=== PATIENT | female | born 2000 | race Hispanic/Latino ===

== ENCOUNTER 2023-05-24 08:59 | Day surgery (SDC) | payer OTHER ==
[2023-05-16 16:14] VITALS: BP 106/70
[~2023-05-24] VITALS: Ht 154.9 cm; Wt 67.0 kg
--- NOTE | ~2023-05-24 | OR ---
[address] [address] [place] DATE OF OPERATION: 05/24/2023 SURGEON: Anne Marie Parham DO PREOPERATIVE DIAGNOSES: 1. Chronic pelvic pain. 2. Dysmenorrhea. 3. Dyspareunia. 4. Dysuria. POSTOPERATIVE DIAGNOSES: 1. Chronic pelvic pain. 2. Dysmenorrhea. 3. Dyspareunia. 4. Dysuria. 5. Arcuate uterus. PROCEDURES PERFORMED: 1. Hysteroscopy, dilation and curettage. 2. Cystoscopy. 3. Diagnostic laparoscopy. ANESTHESIA: General. COMPLICATIONS: None. ESTIMATED BLOOD LOSS: 10 mL. SPECIMEN: Endometrial curettings. FINDINGS: Normal external genitalia with normal clitoris, urethral meatus, bilateral [place]'s Bartholin's glands. Normal vagina and cervix with excellent apical support. On hysteroscopy, normal cervical os and endometrium without fibroids or polyps. An arcuate configuration to the endometrial cavity. On cystoscopy, normal bladder without Hunner's ulcerations, trabeculations, or other abnormalities. Excellent compliance of the PATIENT NAME: YESENIA JOSEPH OPERATIVE REPORT DATE OF : [birth year] REPORT #: [id number] PHYSICIAN: ANNE MARIE PARHAM) PCP: MISTY GARRIDO MD REPORT IS CONFIDENTIAL AND NOT TO BE RELEASED WITHOUT AUTHORIZATION [address] [address] Draft bladder and no petechial hemorrhage on second look. On laparoscopy, normal right upper quadrant, appendix, uterus, tubes, and ovaries. Normal peritoneum without evidence of endometriosis. No visual explanation for the patient's symptoms. INDICATIONS: Ms. Abdoul Knight is a very pleasant 22-year-old G0 female with a history of dysmenorrhea, dyspareunia, dysuria, who presents for diagnostic laparoscopy, hysteroscopy, D and C, and cystoscopy. Risks, benefits, and alternatives were discussed in detail with the patient. The patient understands and wishes to proceed with procedure. TECHNIQUE: The patient was taken to the operating room where a time-out was performed to confirm correct patient and correct procedure. General anesthesia was adequately established. The patient was prepped and draped in dorsal lithotomy position with her feet in Yellofin stirrups. ICPs were on running and no preoperative antibiotics or heparin were indicated. A Ramos was placed in the bladder and a weighted speculum was placed in vagina. The anterior lip of the cervix was grasped with an Allis clamp. The cervix was gently dilated with Hegar dilators to a #7. The cystoscope was placed in the cervical os and advanced under direct visualization into the uterus. Normal-appearing endometrium without fibroid or polyp noted. There was an arcuate configuration to the fundal portion of the uterine cavity. A MyoSure Lite device was selected and circumferential curettage was performed. The hysteroscope was removed and attention was turned to cystoscopy. The Ramos catheter was removed and a 70-degree cystoscope was placed in the urethral meatus and advanced under direct visualization into the bladder. The bladder was filled with excellent compliance noted. No Hunner's ulcerations, trabeculations, or other abnormalities found. There was excellent compliance of bladder, which filled over 800 mL without difficulty. The bladder was drained and the cystoscope was replaced into the bladder and partially refilled. No petechial hemorrhage was appreciated. The bladder was drained and Ramos catheter was reinserted. Attention was then turned to diagnostic laparoscopy. The base of the umbilicus was infiltrated with 0.25% Marcaine with epinephrine and a 5 mm stab incision was made using an 11 blade. A 5 mm trocar was then placed under direct visualization without complication. A pneumoperitoneum was easily established. Survey of the abdomen and pelvis was performed demonstrating a normal right upper quadrant, diaphragm and appendix. Attention was then turned to the pelvis. A 5 mm assist port was then placed in the left lower quadrant under direct visualization to facilitate visualization. The uterus, fallopian tubes, and ovaries are normal in appearance with normal fundal contour confirming arcuate configuration of the uterus. The peritoneal surfaces were closely inspected and no evidence of endometriosis was appreciated. No evidence or explanation for her visual cause of the patient's symptoms. Pneumoperitoneum was reduced and trocars were removed. Trocar sites were repaired using 4-0 Monocryl in subcuticular PATIENT NAME: YESENIA JOSEPH OPERATIVE REPORT DATE OF : [birth year] REPORT #: [id number] PHYSICIAN: ANNE MARIE PARHAM) DO PCP: MISTY GARRIDO MD REPORT IS CONFIDENTIAL AND NOT TO BE RELEASED WITHOUT AUTHORIZATION [facility] [address], [place] [address] Draft stitch with excellent hemostasis. The Allis clamp and Ramos catheter were removed and the patient was taken to PACU in good and stable condition. Sponge, needle, and instrument count was correct x2 at the end of the procedure. Anne Marie Parham DO JTongW/MODL /[id number] Copies: ~ PATIENT NAME: ABDOUL KNIGHTYESENIA OPERATIVE REPORT DATE OF : [birth year] REPORT #: [id number] PHYSICIAN: ANNE MARIE PARHAM (PHYLLIS) PCP: MISTY GARRIDO MD REPORT IS CONFIDENTIAL AND NOT TO BE RELEASED WITHOUT AUTHORIZATION
[~2023-05-24 08:59] MED LIST: AJOVY AUTO225 MG/1.5 SUB-Q; BUDESONIDE-FO10.2 GM INH; FLUTICASONE-SAL12 GM INH; SINGULAIR10 MG PO; VENTOLIN HFA18 GM INH
[2023-05-24 09:16] VITALS: BP 129/77
--- NOTE | 2023-05-24 10:47 | NUR ---
PATIENT UPDATED ON WAIT TIME FOR SURGERY. PATIENT STATES IV A LITTLE PAINFUL AT INSERTION SITE, READJUSTED TAPE AND STATES FEELS BETTER. NO OTHER NEEDS AT THIS TIME.
--- NOTE | 2023-05-24 13:46 | NUR ---
05/24/23 4046 Virginia Hirsch PATIENT WAKES TO MY VOICE, LIFTS HEAD OFF PILLOW AND OPENS MOUTH FOR ORAL AIRWAY TO BE REMOVED. PATIENT DENIES PAIN AND NAUSEA.
[2023-05-24 13:57] VITALS: BP 127/97
--- NOTE | 2023-05-24 14:21 | NUR ---
1355-PATIENT BACK TO ROOM FROM PACU ON RA. RECEIVED REPORT FROM SHAD O[facility]. PATIENT IS AWAKE. RESP EVEN AND UNLABORED. RATES PAIN 5/10 AND STATES FEELS LIKE CRAMPING. BOTH BANDAIDS ON ABDOMEN ARE CLEAN, DRY, AND INTACT. PERIPAD CLEAN, DRY, AND INTACT. BEN HUGGER ON. PARTNER IN ROOM. CALL LIGHT WITH IN REACH. 1400-PATIENT EATING CRACKERS AND DRINKING WATER. 1408-PAIN MEDICATIONS GIVEN PER EMAR.
--- NOTE | 2023-05-24 14:42 | NUR ---
PATIENT RATES PAIN A 2/10. STATES FEELING MUCH BETTER.
[2023-05-24 14:56] VITALS: BP 94/54
--- NOTE | 2023-05-24 15:03 | NUR ---
1455-PATIENT IS AWAKE. RESP EVEN AND UNLABORED. RATES PAIN 1/10. BANDAIDS ARE CLEAN, DRY, AND INTACT. PERIPAD WITH SCANT AMOUNT OF RED DRAINAGE. PARTNER IN ROOM. WOULD LIKE TO WAIT A LITTLE BIT TO VOID. CALL LIGHT WITHIN REACH.
[2023-05-24 15:40] VITALS: BP 96/59
--- NOTE | 2023-05-24 15:52 | NUR ---
LE 1530 PATIENT AMBULATED TO THE RESTROOM. PATIENT VOIDED CLEAR AND YELLOW URINE. PATIENT AMBULATED BACK. LE 1540 PATIENT HAS MET DISCHARGE CRITERIA. PATIENT GIVEN DISCHARGE INSTRUCTIONS. NO QUESTIONS AT THIS TIME. PATIENT IV D/C'D WNL. PATIENT WHEELED OUT OF FACILITY NO FUTHER NEEDS.
--- NOTE | 2023-05-30 16:53 | PATH ---
[facility] [address], [place] [address] Signed SPECIMEN(S): A ENDOMETRIAL CURETTINGS SPECIMEN SOURCE: A. ENDOMETRIAL CURETTINGS CLINICAL HISTORY: Diagnostic laparoscopy with possible excision endometriosis, DC, cystoscopy. Dysmenorrhea, abnormal uterine bleeding, dysuria. FINAL PATHOLOGIC DIAGNOSIS: Endometrial curettings: - Proliferative endometrium, negative for hyperplasia or atypia. JVR:[place] MICROSCOPIC EXAMINATION: Histologic sections of all submitted blocks are examined by light microscopy. These findings, together with the gross examination, support the pathologic diagnosis. GROSS DESCRIPTION: The specimen, labeled and designated "Abdoul Greer, endometrial curettings," is received in formalin and consists of multiple fragments of red-brown to lei, soft tissue (2.2 x 0.8 x 0.2 cm in aggregate). The specimen is submitted entirely in cassette (A1). VB (under the direct supervision of a pathologist) The Gross Description was prepared using a voice recognition system. The report was reviewed for accuracy; however, sound-alike word errors, addition and/or deletions may occur. If there is any question about this report, please contact Client Services. PERFORMING LABORATORY: Technical component was performed by [facility], [address] [place] [id number] (CLIA# [id number]). Professional interpretation was performed by [facility], [address] [place] [id number] (CLIA#: [id number]). Diagnostician: Zhou Ramirez MD Pathologist Electronically Signed 05/30/2023 PATIENT NAME: YESENIA JOSEPH PATHOLOGY DATE OF : [birth year] REPORT #: [id number] PHYSICIAN: [facility] PCP: MISTY GARRIDO MD REPORT IS CONFIDENTIAL AND NOT TO BE RELEASED WITHOUT AUTHORIZATION [address] [address] Signed Copies: ~ PATIENT NAME: YESENIA JOSEPH PATHOLOGY DATE OF : [birth year] REPORT #: [id number] PHYSICIAN: [facility] PCP: MISTY GARRIDO MD REPORT IS CONFIDENTIAL AND NOT TO BE RELEASED WITHOUT AUTHORIZATION
== END 2023-05-24 15:40 | disposition home or self-care (01) ==
LOC: OPS 08:59 → DS 08:59 → OPS 12:30 → DS 13:00 → OPS 15:40
PROVIDERS: ATTEND Obstetrics & Gynecology
PROC: 0UDB8ZZ Extraction of Endometrium, Via Natural or Artificial Opening Endoscopic (ICD-10-PCS; principal; 2023-05-24 12:30)
DX: N94.6 Dysmenorrhea, unspecified (principal); N85.8 Other specified noninflammatory disorders of uterus; N94.10 Unspecified dyspareunia; Q51.810 Arcuate uterus; R10.2 Pelvic and perineal pain; G89.29 Other chronic pain; E28.2 Polycystic ovarian syndrome; F43.10 Post-traumatic stress disorder, unspecified; J45.909 Unspecified asthma, uncomplicated; F32.A Depression, unspecified
CPT/HCPCS: 00840; J0131; J1100; J1885; J2001; J2250; J2405; J2704; J3010; J3490; J7121

== ENCOUNTER 2024-03-13 04:28 | Emergency (ER) | payer OTHER ==
[~2024-03-13] VITALS: Ht 154.9 cm; Wt 60.0 kg
[2024-03-13] MEDS ORDERED: LITHIUM CARBON300 MG PO (04:44)
[2024-03-13] MEDS ORDERED: FLUOXETINE HCL40 MG PO (04:44)
[2024-03-13] MEDS ORDERED: DEXTROAMP-AMPHE30 MG PO (04:44)
[2024-03-13 05:13] LABS: BASOPHILS 1.1 % (0-2); EOSINOPHILS 2.2 % (0-6); HEMATOCRIT 37.3 % (35.0-50.0); HEMOGLOBIN 12.6 g/dL (12.0-18.0); LYMPHOCYTES 29.7 % (24-44); MCH 30.4 (27-36); MCHC 33.9 g/dl (30-36); MCV 89.5 fl (81-99); MONOCYTES 6.9 % (0-12); NEUTROPHILS 60.1 % (39-80); PLATELET COUNT 246 K/uL (140-440); RBC 4.16 M/ul (4.3-5.7); RDW 14.2 (10.5-15.0)
[2024-03-13 05:33] LABS: ALBUMIN 3.5 g/dL (3.4-5.0); ALBUMIN/GLOBULIN RATIO 1.17 (1.1-2.4); ANION GAP 8.4 (7-21); BILIRUBIN, TOTAL 0.4 ng/dL (0.2-1.0); BUN/CREATININE RATIO 16.27 (6.0-28.6); CALCIUM 8.4 mg/dL (8.5-10.1); CREATININE, SERUM 0.86 mg/dL (0.55-1.02); POTASSIUM 3.4 mmol/L (3.5-5.1); PROTEIN, TOTAL 6.5 g/dL (6.4-8.2)
[2024-03-13] MEDS ORDERED: DOXYCYCLINE HY100 MG PO (06:28)
[2024-03-13] MEDS ORDERED: ASPIRIN 325 MG TAB PO ONE (06:30)
[2024-03-13] MEDS ORDERED: DOXYCYCLINE HYCLATE 100 MG CAP PO ONE (06:30)
[2024-03-13 06:38] VITALS: BP 124/79
== END 2024-03-13 06:38 | disposition home or self-care (01) ==
LOC: ED 04:28
PROVIDERS: Internal Medicine
DX: I80.02 Phlebitis and thrombophlebitis of superficial vessels of left lower extremity (principal); Z91.040 Latex allergy status; Z97.5 Presence of (intrauterine) contraceptive device; Z79.899 Other long term (current) drug therapy
CPT/HCPCS: 36415; 80053; 84703; 85025; 85379; 93971; 99284-25

== ENCOUNTER 2025-03-05 17:44 | Emergency (ER) | payer OTHER ==
[~2025-03-05] VITALS: Ht 154.9 cm; Wt 60.2 kg
[~2025-03-05 17:44] MED LIST changes: +DEXTROAMP-AMPHE30 MG PO; +DOXYCYCLINE HY100 MG PO; +FLUOXETINE HCL40 MG PO; +LITHIUM CARBON300 MG PO
[2025-03-05] MEDS ORDERED: OMEPRAZOLE20 MG PO (18:01)
[2025-03-05 18:11] LABS: BLOOD/HGB, URINE TRACE-I (Negative); KETONE, URINE TRACE (Negative); LEUK ESTERASE, URINE NEGATIVE (negative); NITRITE, URINE NEGATIVE (negative)
[2025-03-05 18:16] LABS: CASTS, URINE NONE SEEN \\lpf; CRYSTALS, URINE NONE SEEN (0-1+); EPITHELIAL CELLS, URINE NONE SEEN /lpf (0-1+); REFLEX CULTURE, URINE Yes (No)
[2025-03-05 18:17] LABS: BACTERIA, URINE 1+ /hpf (negative)
[2025-03-05] MEDS ORDERED: PHENAZOPYRIDINE HCL 100 MG TAB PO ONE (18:45)
[2025-03-05] MEDS ORDERED: CEPHALEXIN MONOHYDRATE 500 MG CAP PO ONE (18:45)
[2025-03-05] MEDS ORDERED: CEPHALEXIN500 M1 PO (18:50)
[2025-03-05] MEDS ORDERED: CEPHALEXIN MONOHYDRATE 500 MG HOME.PACK PO ONE (19:00)
[2025-03-05 19:07] VITALS: BP 123/79
== END 2025-03-05 19:05 | disposition home or self-care (01) ==
LOC: ED 17:44
PROVIDERS: Emergency Medicine
DX: N39.0 Urinary tract infection, site not specified (principal); F43.10 Post-traumatic stress disorder, unspecified; Z79.899 Other long term (current) drug therapy; Z91.040 Latex allergy status
CPT/HCPCS: 81001; 87088; 99283; A9270